=== PATIENT | male | born 1945 | race Caucasian/White ===

== ENCOUNTER → 2018-11-06 | Outpatient (CLI) | payer MEDICARE, OTHER | LOC: CARD 07:55 | PROVIDERS: ATTEND Internal Medicine Cardiovascular Disease | DX: R07.89 Other chest pain (principal); I71.4 Abdominal aortic aneurysm, without rupture; I10 Essential (primary) hypertension; E78.2 Mixed hyperlipidemia; I34.0 Nonrheumatic mitral (valve) insufficiency | CPT/HCPCS: 93306 ==

== ENCOUNTER → 2018-11-12 | Outpatient (CLI) | payer MEDICARE, OTHER ==
[~2018-11-12] MED LIST: CATHETER FLUSH 10 ML SYR IV PRN; REGADENOSON 0.4 MG/5 ML SYR (LEXISCAN) IV ONE
[2018-11-12 09:33] VITALS: BP 159/93
--- NOTE | 2018-11-12 17:02 | STRESS TEST ---
DATE OF SERVICE: 11/12/2018 LEXISCAN MYOVIEW STRESS TEST REPORT REFERRING PHYSICIAN: Christiane Ariza MD. Baseline heart rate is 57. Baseline blood pressure is 159/93. Baseline EKG is sinus rhythm with right bundle branch block. In summary, the patient was injected with 10.96 mCi of technetium-99 Myoview and the resting images were obtained. Then, the patient received 0.4 mg of Lexiscan followed by 29.8 mCi of technetium-99 Myoview. Throughout the test, there were no EKG changes. The resting and stress images were reviewed and compared in the short axis, horizontal long axis, and vertical long axis views. Review of the images showed diaphragmatic attenuation with decreased uptake involving the mid to apical inferior wall and inferoseptum with mild reversibility. SSS is 4, SDS is 4, TID value of 0.83. On the gated images, the left ventricle appeared to be in normal size with normal contractility. Calculated ejection fraction is 46% with hypokinesia at the inferior wall, inferior apex and true apex. CONCLUSION: 1. The patient tolerated Lexiscan well. 2. Diaphragmatic attenuation with mild decreased uptake at the mid to apical inferior wall and inferoseptum with mild reversibility. 3. Normal left ventricular size with hypokinesia at the inferior wall, inferoseptum and inferior apex and true apex with calculated ejection fraction of 46%. Job ID: [id number] DocumentID: [id number] Dictated Date: 11/12/2018 16:46:47 [employer] Date: 11/12/2018 17:01:57 Dictated By: KAVITA JIMENES MD
== END ==
LOC: CARD 07:25
PROVIDERS: ATTEND Internal Medicine Cardiovascular Disease
DX: R07.89 Other chest pain (principal); I10 Essential (primary) hypertension; E78.2 Mixed hyperlipidemia
CPT/HCPCS: 78452; 93017

== ENCOUNTER → 2020-06-22 | Outpatient (CLI) | payer OTHER, MEDICARE | LOC: LABNPT 11:01 | PROVIDERS: ATTEND Nurse Practitioner Family | DX: Z20.822 Contact with and (suspected) exposure to COVID-19 (principal) | CPT/HCPCS: 87635 ==